=== PATIENT | male | born 1995 | race Hispanic/Latino ===

== ENCOUNTER 2020-01-03 21:47 | Emergency (ER) | payer OTHER ==
[2020-01-03] MEDS ORDERED: LIDOCAINE 1%-EPI 1:100,000 20 ML VIAL IJ ONE (22:39)
[2020-01-03] MEDS ORDERED: ACETAMINOPHEN 325 MG TAB ONE (23:40)
[2020-01-03] MEDS ORDERED: OCTYL 2-CYANOACRYLATE 1 EACH TP ONE (23:40)
== END 2020-01-03 23:56 | disposition home or self-care (01) ==
LOC: EDH 21:47
DX: S01.511A Laceration without foreign body of lip, initial encounter (principal); Z72.0 Tobacco use; X58.XXXA Exposure to other specified factors, initial encounter; Y93.89 Activity, other specified; Y92.89 Other specified places as the place of occurrence of the external cause; Y99.8 Other external cause status
CPT/HCPCS: 12011; 99283; J3490